=== PATIENT | female | born 1935 | race Caucasian/White ===

== ENCOUNTER 2017-12-02 06:38 | Day surgery (SDC) | payer MEDICARE, OTHER ==
[2017-12-02] MEDS ORDERED: LIDOCAINE 2% (SDV) 5 ML INJ (09:19)
[2017-12-02] MEDS ORDERED: PROPOFOL 40 ML (09:19)
== END 2017-12-05 14:59 | disposition home or self-care (01) ==
LOC: GIL 06:38
DX: R19.4 Change in bowel habit (principal); K62.1 Rectal polyp; K31.7 Polyp of stomach and duodenum; K57.90 Diverticulosis of intestine, part unspecified, without perforation or abscess without bleeding; K64.4 Residual hemorrhoidal skin tags; K29.70 Gastritis, unspecified, without bleeding; I10 Essential (primary) hypertension; E78.5 Hyperlipidemia, unspecified; I25.10 Atherosclerotic heart disease of native coronary artery without angina pectoris
CPT/HCPCS: 43239; 88305; 88312